=== PATIENT | female | born 1965 | race Two or more races ===

== ENCOUNTER 2016-10-14 05:05 | Day surgery (SDC) | payer OTHER ==
[2016-10-13 11:00] VITALS: BMI 23.1
[~2016-10-14 05:05] MED LIST: metroNIDAZOLE 0.75% VAGINAL GEL 70 GM TUBE VG ONE
[2016-10-14] MEDS ORDERED: ROCURONIUM BROMIDE 50 MG/5 ML VIAL ONE ×2 (07:48→07:49)
[2016-10-14] MEDS ORDERED: PROPOFOL 20 ML ONE ×2 (07:48→07:49)
[2016-10-14] MEDS ORDERED: MIDAZOLAM HCL 2 MG/2 ML SINGLE DOSE VIAL ONE (07:49)
[2016-10-14] MEDS ORDERED: LIDOCAINE HCL/PF 2% SDV 5ML VIAL ONE (07:49)
--- NOTE | 2016-10-14 08:03 | HP ---
Admitting History and Physical - Admission Chief Complaint: Pelvic prolapse History of Present Illness: 51 yo Para 4, with uterine prolapse, is Pre op for vaginal hysterectomy. History Source: Patient Limitations to Obtaining History: No Limitations - Past Medical History ...LMP Comment: 1.5YRS AGO ...: No ...Para: 4 - Past Surgical History Past Surgical History: Yes: None - Smoking History Smoking history: Never smoked Have you smoked in the past 12 months: No - Alcohol/Substance Use Hx Alcohol Use: Yes (SOCIALLY) History of Substance Use: reports: None - Social History History of Recent Travel: No Home Medications - Allergies Allergies/Adverse Reactions: Allergies Allergy/AdvReac Type Severity Reaction Status Date / Time No Known Drug Allergies Allergy Verified 10/14/16 07:13 - Home Medications Home Medications: Ambulatory Orders Multivitamins [Tab-A-Vit -] 1 tab PO DAILY 10/13/16 Family Disease History - Family Disease History Family History: Unremarkable Review of Systems - Review of Systems Constitutional: reports: No Symptoms Eyes: reports: No Symptoms HENT: reports: No Symptoms Neck: reports: No Symptoms Cardiovascular: reports: No Symptoms Respiratory: reports: No Symptoms Gastrointestinal: reports: No Symptoms Genitourinary: reports: No Symptoms Breasts: reports: No Symptoms Reported Musculoskeletal: reports: No Symptoms Integumentary: reports: No Symptoms Neurological: reports: No Symptoms Endocrine: reports: No Symptoms Hematology/Lymphatic: reports: No Symptoms Psychiatric: reports: No Symptoms Pain Intensity: 0 Physical Examination Vital Signs: Vital Signs Temperature 97.8 F 10/14/16 07:13 Pulse Rate 79 10/14/16 07:13 Respiratory Rate 20 10/14/16 07:13 Blood Pressure 117/79 10/14/16 07:13 O2 Sat by Pulse Oximetry (%) 98 10/14/16 07:09 Constitutional: Yes: Well Nourished Eyes: Yes: Conjunctiva Clear HENT: Yes: Atraumatic Neck: Yes: Supple, Trachea Midline Cardiovascular: Yes: Regular Rate and Rhythm Respiratory: Yes: Regular, CTA Bilaterally Gastrointestinal: Yes: Normal Bowel Sounds Neurological: Yes: Alert, Oriented ...Motor Strength: WNL Psychiatric: Yes: Alert, Oriented Problem List - Problems (1) Uterine prolapse Code(s): N81.4 - UTEROVAGINAL PROLAPSE, UNSPECIFIED Assessment/Plan Uterine Prolapse Pre op for Total vaginal hysterectomy Consent signed Anesthesia to see patient
--- NOTE | 2016-10-14 08:04 | OP ---
Operative Note - Note: Operative Date: 10/14/16 Pre-Operative Diagnosis: Uterine prolapse Operation: Total vaginal hysterectomy Findings: Grade 3 uterovaginal prolapse Post-Operative Diagnosis: Same as Pre-op Surgeon: Sabrina Juarez Rotary Adjuster: Myra Grimes Specimens Removed: Uterus / Tubes / Cervix Estimated Blood Loss (mls): 100
[2016-10-14] MEDS ORDERED: ceFAZolin SODIUM 1 GM VIAL ONE (08:19)
[2016-10-14] MEDS ORDERED: SODIUM CHLORIDE 0.9% P/F 10 ML VIAL IJ ONE (08:19)
[2016-10-14] MEDS ORDERED: ceFAZolin SODIUM 1 GM VIAL IVPB ONE (08:20)
[2016-10-14] MEDS ORDERED: DEXAMETHASONE SOD PHOSPHATE 4 MG/1 ML VIAL ONE (08:28)
[2016-10-14] MEDS ORDERED: VASOPRESSIN 20 UNITS/ML VIAL IV ONE (08:41)
[2016-10-14] MEDS ORDERED: metroNIDAZOLE 0.75% VAGINAL GEL 70 GM TUBE ONE (09:20)
[2016-10-14] MEDS ORDERED: NEOSTIGMINE METHYLSULFATE 0.5 MG/ML - 10 ML MDV ONE (09:39)
[2016-10-14] MEDS ORDERED: GLYCOPYRROLATE 0.2 MG/1 ML VIAL ONE (09:39)
[2016-10-14] MEDS ORDERED: metroNIDAZOLE 0.75% VAGINAL GEL 70 GM TUBE VG ONE (09:49)
[2016-10-14] MEDS ORDERED: PROMETHAZINE HCL 25 MG/1 ML VIAL IVPUSH PRN (10:04)
[2016-10-14] MEDS ORDERED: ONDANSETRON 4 MG/2 ML VIAL IVPUSH PRN ×2 (10:04→10:07)
[2016-10-14] MEDS ORDERED: PROMETHAZINE HCL 25 MG/1 ML VIAL IVPB PRN (10:07)
[2016-10-14] MEDS ORDERED: DEXAMETHASONE SOD PHOSPHATE 4 MG/1 ML VIAL IVPUSH ONE (10:07)
[2016-10-14] MEDS ORDERED: HYDROmorphone *PCA* 10MG/50ML DISP.SYRIN PCA ONE ×2 (10:07→10:40)
[2016-10-14] MEDS ORDERED: HYDROmorphone HCL CARPU-JECT 2 MG/1 ML DISP.SYRIN ONE (10:07)
[2016-10-14] MEDS ORDERED: HYDROmorphone HCL CARPU-JECT 2 MG/1 ML DISP.SYRIN IVPUSH ONE ×4 (10:10→10:40)
[2016-10-14] MEDS ORDERED: HYDROmorphone *PCA* 10MG/50ML DISP.SYRIN PCA SCH (10:15)
[2016-10-14] MEDS ORDERED: LACTATED RINGERS SOLUTION 1,000 ML IV SCH (10:15)
[2016-10-14] MEDS: CEFAZOLIN (PRE-DOCKED) 50 ML IVPB SCH (17:36)
[2016-10-14] MEDS: DEXTROSE 5%-LACTATED RINGERS 1,000 ML IV SCH (20:36)
[2016-10-15] MEDS: CEFAZOLIN (PRE-DOCKED) 50 ML IVPB SCH (01:48)
[2016-10-15] MEDS: DEXTROSE 5%-LACTATED RINGERS 1,000 ML IV SCH (05:01)
--- NOTE | 2016-10-15 09:15 | PN ---
Progress Note (short form) - Note Progress Note: Anesthesia/pain Pt seen and examined S;Alert and awake c/o BA O: Vital Signs Temperature 98.3 F 10/15/16 06:00 Pulse Rate 73 10/15/16 06:00 Respiratory Rate 16 10/15/16 06:00 Blood Pressure 105/70 10/15/16 06:00 O2 Sat by Pulse Oximetry (%) 95 10/14/16 22:00 Current Active Problems A/P:Uterine prolapse (Acute) s/p vaginal hysterectomy uses COMPUTER SUPPORT SPECIALIST Continue with COMPUTER SUPPORT SPECIALIST Tylenol mushtaq BA Continue current care Rupesh Kay MD
[2016-10-15] MEDS ORDERED: ACETAMINOPHEN 500 MG TABLET (FP) PO PRN (09:18)
[2016-10-15] MEDS ORDERED: ONDANSETRON 4 MG/2 ML VIAL IVPUSH ONE (09:30)
[2016-10-15] MEDS ORDERED: OXYCODONE/APAP 5/325MG COMBO TABLET PO PRN (10:43)
--- NOTE | 2016-10-15 10:49 | PN ---
Progress Note, Physician Chief Complaint: Post op care History of Present Illness: 51 yo Para 3 with h/o uterine prolapse is status post vaginal hysterectomy. Patient seen and evaluated, she c/o nausea and incision pain. She has a nasal canula in place. - Current Medication List Current Medications: Active Medications Acetaminophen (Tylenol -) 500 mg PO Q4H PRN PRN Reason: FEVER OR PAIN Fentanyl (Sublimaze Injection -) 50 mcg IVPUSH [id number] PRN PRN Reason: PAIN Stop: 10/17/16 10:05 Lactated Ringer's (Lactated Ringers Solution) 1,000 mls @ 125 mls/hr IV ASDIR DELMY Ibuprofen (Caldolor Injection -) 800 mg IVPB Q8H PRN PRN Reason: FEVER Oxycodone/Acetaminophen (Percocet 5/325 -) 1 combo PO Q4H PRN PRN Reason: PAIN LEVEL 1-5 Promethazine HCl (Phenergan Injection -) 12.5 mg IVPB Q6H PRN PRN Reason: NAUSEA AND/OR VOMITING - Objective Vital Signs: Vital Signs Temperature 98.3 F 10/15/16 06:00 Pulse Rate 73 10/15/16 06:00 Respiratory Rate 16 10/15/16 06:00 Blood Pressure 105/70 10/15/16 06:00 O2 Sat by Pulse Oximetry (%) 95 10/14/16 22:00 Constitutional: Yes: Other (She's lying in bed) Eyes: Yes: Conjunctiva Clear HENT: Yes: Atraumatic Neck: Yes: Supple, Trachea Midline Cardiovascular: Yes: Regular Rate and Rhythm Respiratory: Yes: On Nasal O2 Gastrointestinal: Yes: Normal Bowel Sounds ...Rectal Exam: Yes: WNL Genitourinary: Yes: Adler Present, Other (Vaginal packing in place) Breast(s): Yes: WNL Neurological: Yes: Alert, Oriented ...Motor Strength: WNL Psychiatric: Yes: Alert, Oriented Problem List - Problems (1) Uterine prolapse Code(s): N81.4 - UTEROVAGINAL PROLAPSE, UNSPECIFIED Assessment/Plan Status post vaginal hysterectomy Post op Nausea most likely due to RN ORTHO D/C IV Fluid D/C RN ORTHO Percocet PRN pain D/C Adler catheter Encourage ambulation Regular diet Consider D/C home this pm
--- NOTE | 2016-10-15 10:58 | DS ---
[id number] Rate 16 10/15/16 06:00 Blood Pressure 105/70 10/15/16 06:00 O2 Sat by Pulse Oximetry (%) 95 10/14/16 22:00 Constitutional: Yes: Calm Eyes: Yes: Conjunctiva Clear HENT: Yes: Atraumatic Neck: Yes: Supple, Trachea Midline Cardiovascular: Yes: Regular Rate and Rhythm Respiratory: Yes: Regular, CTA Bilaterally Gastrointestinal: Yes: Soft, Other (+ suprapubic tenderness) Neurological: Yes: Alert, Oriented Psychiatric: Yes: Alert, Oriented Discharge Summary Reason For Visit: PELVIC PROLAPSE Current Active Problems Status post vaginal hysterectomy (Acute) Uterine prolapse (Acute) Procedures: Principal: Total vaginal hysterectomy Hospital Course: Patient required additional dosage of antibiotic. No blood transfusion required. Pain managed with MANUFACTURING QUALITY TECHNICIAN and Narcotics. Condition: Fair - Instructions Diet, Activity, Other Instructions: Regular diet No douching, no sexual activities x 4 weeks. F/U with MD in 2 weeks. Referrals: Sabrina Juarez MD [Staff Physician] - Disposition: HOME - Home Medications Comprehensive Discharge Medication List: Ambulatory Orders Multivitamins [Tab-A-Vit -] 1 tab PO DAILY 10/13/16
[2016-10-15] MEDS ORDERED: ACETAMINOPHEN 325 MG TABLET (FP) PO PRN (11:21)
[2016-10-15] MEDS: IBUPROFEN 800 MG/8 ML IJ IVPB PRN ×2 (14:34→22:25)
[2016-10-15 16:25] LABS: BASOPHIL 0.3 % (0-2.0); EOSINOPHIL 0.1 % (0-4.5); MCH 29.6 pg (25.7-33.7); MCHC 33.6 g/dl (32.0-36.0); MEAN CELL VOLUME 88.1 fl (80-96); MEAN PLT VOLUME 9.2 fl (7.5-11.1); NEUTROPHILS 82.7 % (42.8-82.8); PLATELET COUNT 187 K/MM3 (134-434); RDW 12.6 % (11.6-15.6)
[2016-10-15] MEDS: oxyCODONE HCL 5 MG TABLET PO PRN (20:14)
[2016-10-16] MEDS: oxyCODONE HCL 5 MG TABLET PO PRN (06:18)
[2016-10-16 07:51] LABS: BASOPHIL 0.3 % (0-2.0); EOSINOPHIL 0.2 % (0-4.5); MCH 30.2 pg (25.7-33.7); MCHC 34.5 g/dl (32.0-36.0); MEAN CELL VOLUME 87.6 fl (80-96); NEUTROPHILS 75.1 % (42.8-82.8); PLATELET COUNT 176 K/MM3 (134-434); RDW 12.6 % (11.6-15.6); WHITE BLOOD COUNT 9.3 K/mm3 (4.0-10.0)
[2016-10-16 10:41] VITALS: BP 121/73; PULSE 76; TEMP 98.4
--- NOTE | 2016-10-16 11:04 | PN ---
Progress Note (short form) - Note Progress Note: Anesthesiologist,ON SITE SOIL EVALUATOR follow up. Pat is POD#2 S/P vaginal hysterectomy. Have been on ON SITE SOIL EVALUATOR Dilaudid. Pat seen and examined. VSS.Pain now controlled by PO meds. Pat is ready to be discharged by primary team. Signed off.
--- NOTE | 2016-10-19 11:19 | PATH ---
Surgical Pathology Report Patient Name: MALINA MORENO [facility]. Rec. #: [id number] /Age/Gender: 1965 (Age: 51) / F Account: [id number] Location: AMBULATORY SURG Taken: 10/14/2016 Received: 10/14/2016 Reported: 10/17/2016 Physicians: Sabrina Juarez M.D. Specimen(s) Received UTERUS, CERVIX, BILATERAL FALLOPIAN TUBES Clinical History Uterovaginal prolapse Final Diagnosis UTERUS, CERVIX, BILATERAL FALLOPIAN TUBES, TOTAL VAGINAL HYSTERECTOMY, BILATERAL SALPINGECTOMY: CERVIX: CHRONIC CERVICITIS. ENDOMETRIUM: SMALL ENDOMETRIAL POLYP, BACKGROUND OF INACTIVE ENDOMETRIUM. MYOMETRIUM: LEIOMYOMATA (LARGEST 1.0 CM). UTERINE SEROSA: WITHOUT SIGNIFICANT PATHOLOGIC CHANGES. FALLOPIAN TUBES: UNILATERAL PARATUBAL CYST. Electronically Signed Josué Hamilton M.D. Gross Description Received in formalin labeled "uterus, cervix, bilateral tubes" is a 74 g hysterectomy specimen including a uterus with an attached cervix and no attached adnexa. The undesignated bilateral fallopian tubes are separately received within the same container. The specimen measures 7.5 cm from superior to inferior, 4.7 cm from left to right and 4.0 cm from anterior to posterior. The serosa is pink-hernandez with focal subserosal nodules. The attached cervix measures 3.5 cm in length and averages 2.2 cm in diameter. The ectocervix is pink-hernandez, smooth and glistening. The endocervix is unremarkable. The endometrial cavity measures 3 cm from superior to inferior and 3 cm from cornu to cornu. The endometrium is hernandez-red and averages 0.1 cm in thickness. The myometrium displays multiple firm to rubbery intramural nodules, measuring up to 1 cm in greatest dimension. No areas of hemorrhage or necrosis are identified. One of the subserosal nodules is calcified. The myometrium is hernandez-pink and averages 1.8 cm in thickness. The bilateral, undesignated, fimbriated fallopian tubes average 3.0 cm in greatest dimension. One of the fallopian tubes displays an attached 1.3 cm greatest dimension paratubal cyst. The outer surfaces are hernandez-pink and smooth. Sectioning reveals unremarkable lumen. Manager Talent Management sections are submitted in 14 cassettes as follows: 1-anterior cervix; 2-posterior cervix; 7-8-rcvvzvga endomyometrium; 9-6-ixyiepkhs endomyometrium; 7-calcified subserosal nodule, following decalcification; 8-additional subserosal nodules; 4-64-zosxpvgpmg nodules; 11-arbitrarily designated fallopian tube 1 fimbria; 12-cross sections of arbitrarily designated fallopian tube 1 and paratubal cyst; 13-arbitrarily designated fallopian tube 2 fimbria; 14-cross sections of arbitrarily designated fallopian tube 2. 10/14/2016 [facility]10/14/2016
--- NOTE | 2016-11-15 19:16 | OP ---
DATE OF OPERATION: 11/14/2016 PREOPERATIVE DIAGNOSIS: Pelvic prolapse. POSTOPERATIVE DIAGNOSIS: Pelvic prolapse. PROCEDURE: Total vaginal hysterectomy. SURGEON: Sabrina Juarez M.D. LINE SERVER: ANESTHESIA: General. COMPLICATIONS: None. ESTIMATED BLOOD LOSS: 100 mL. PROCEDURE: Patient was taken to operating room where general anesthesia was administered. Patient was then placed in lithotomy position. She was then prepped and draped in proper sterile fashion. The weighted speculum was placed to the vagina. The cervix was grasped with 2 tooth tenacula. Cervix was then injected circumferentially with pitressin. The cervix was then incised with the Bovie cautery, and the bladder dissected off the tubal vesicle cervical fascia anteriorly with sponge stick and the Metzenbaum scissors. Anterior cul-de-sac was entered sharply. This same procedure was performed posteriorly and the posterior cul-de-sac entered sharply without difficulty. At this point, a Moreno clamp was placed over the uterosacral ligament on either side. These were then transected and suture ligated with 0 Vicryl. Hemostasis was assured . The cardinal ligaments were then clamped on both side, transected and suture ligated in similar fashion. The uterine arteries and the broad ligaments were then serially clamped with Moreno clamp, transected, and suture ligated on both sides. Excellent hemostasis was visualized. Both cornua were clamped with Moreno clamp, transected, and the uterus delivered. These pedicles were then suture ligated with excellent hemostasis. The peritoneum was closed with pursestring suture. The vaginal cuff angles were closed with [id number] stitches of 0 Vicryl on both sides and transfixed with ipsilateral cardinal and uterosacral ligaments. The remainder of the vaginal cuff was closed with [id number] stitches of 0 Vicryl. All instruments were removed from the vagina, and the patient was taken out of dorsal lithotomy position, and she was taken to PACU in stable condition. Sponge, lap, needle, and instrument counts were correct x2. SABRINA JUAREZ M.D. [id number]
== END 2016-10-16 10:55 | disposition home or self-care (01) ==
LOC: JASUSAT 05:05 → J6S 16:10 → JASUSAT 10-16 10:55
PROVIDERS: ATTEND Obstetrics & Gynecology
PROC: 0UTC7ZZ Resection of Cervix, Via Natural or Artificial Opening (ICD-10-PCS; 2016-10-14)
PROC: 0UT97ZZ Resection of Uterus, Via Natural or Artificial Opening (ICD-10-PCS; principal; 2016-10-14 08:00)
DX: N81.3 Complete uterovaginal prolapse (principal)
CPT/HCPCS: 36415; 85025; 88307-TC; 94760

== ENCOUNTER 2021-08-12 04:53 | Day surgery (SDC) | payer OTHER ==
[2021-08-12 07:28] VITALS: BMI 21.4
[2021-08-12 09:06] VITALS: BP 151/67; PULSE 55
[2021-08-12 09:10] VITALS: TEMP 97
== END 2021-08-12 09:30 | disposition home or self-care (01) ==
LOC: JASU-ENDO 04:53
PROVIDERS: ATTEND Internal Medicine Gastroenterology
PROC: 0DBN8ZX Excision of Sigmoid Colon, Via Natural or Artificial Opening Endoscopic, Diagnostic (ICD-10-PCS; principal; 2021-08-12 08:00)
DX: Z12.11 Encounter for screening for malignant neoplasm of colon (principal); D12.5 Benign neoplasm of sigmoid colon; K64.8 Other hemorrhoids
CPT/HCPCS: 88305-TC

== ENCOUNTER 2023-10-15 20:01 | Emergency (ER) | payer OTHER ==
[2023-10-15 20:06] VITALS: BP 152/87; PULSE 71; RESP 18; TEMP 98.3; BMI 21.9
[2023-10-15] MEDS ORDERED: IBUPROFEN 600 MG TABLET (FP) PO ONE (21:20)
[2023-10-15] MEDS: IBUPROFEN 600 MG TABLET (FP) PO ONE (21:22)
== END 2023-10-15 21:23 | disposition home or self-care (01) ==
LOC: JERFT 20:01
DX: S66.911A Strain of unspecified muscle, fascia and tendon at wrist and hand level, right hand, initial encounter (principal); M77.8 Other enthesopathies, not elsewhere classified; X50.0XXA Overexertion from strenuous movement or load, initial encounter
CPT/HCPCS: 73090-TC-RT-FY; 73110-TC-RT-FY; 99284-25